=== PATIENT | female | born 1995 | race Caucasian/White ===

== ENCOUNTER 2018-12-17 19:39 | Inpatient (IN) | payer OTHER ==
[2018-12-17] MEDS ORDERED: BUTORPHANOL TARTRATE 1 MG/ML VIAL IVPB ONE (22:25)
[2018-12-17] MEDS ORDERED: PROMETHAZINE HCL 25 MG/1 ML VIAL IVPUSH ONE (22:25)
--- NOTE | 2018-12-17 22:36 | HP ---
Past Medical History - Admission Chief Complaint: IOL for IUGR History of Present Illness: 23yo @ 39.4wks here for IOL for IUGR as per 12/10 sonogram (EFW 5.3lbs). No VB/LOF. Denies ctx. Positive FM PNC @ [address] 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: Alzheimer's, CVA, Dementia, Migraine, Multiple Sclerosis, Peripheral Neuropathy, Parkinson's, Seizure, Syncope, TIA, Vertigo, Other Cardiovascular: No: AFIB, Aneurysm, Aortic Insufficiency, Aortic Stenosis, CAD, CHF, Deep Vein Thrombosis, HTN, Hyperlipdemia, MD, Mitral Insufficiency, Mitral Stenosis, Murmur, Pulmonary Hypertension, Other Gastrointestinal: No: Ascites, Cancer, Constipation, Crohn's Disease, Diverticulitis, Diverticulosis, Esophageal Varices, Gastritis, GERD, GI Bleed, Hemorrhoids, Hiatal Hernia, Inflamatory Bowel Disease, Irritable Bowel Disease, Pancreatitis, Peptic Ulcer Disease, Ulcerative Colitis, Other Hepatobiliary: No: Cirrhosis, Cholelithiasis, Cholecystitis, Choledocholithiasis , Hepatitis A, Hepatitis B, Hepatitis C, Other Renal/: No: Renal Failure, Renal Inusuff, BPH, Cancer, Hematuria, Hemodialysis , Neurogenic Bladder, Renal Calculi, UTI, Other ... Weeks Gestation by Dates: 39.4 ...EDC by Sono: 12/13/18 Heme/Onc: No: Anemia, B12 Deficiency, Bleeding Disorder, Cancer, Current Chemotherapy, Current Radiation Therapy, Hemochromatosis, Hypercoaguable State, Myeloproliferative Synd, Sickle Cell Disease, Sickle Cell Trait, Thrombocytopenia, Other Infectious Disease: No: AIDS, C-Diff, Herpes Zoster, HIV, MRSA, STD's, Tuberculosis, VREF, Other Psych: No: Addictions, Anxiety, Bipolar, Depression, Panic, Psychosis, Schizophrenia, Other Musculoskeletal: No: Bursitis, Chronic low back pain, Hemiparesis, Hemiplegia, Osteoarthritis, Paraplegia, Other - Past Surgical History Past Surgical History: Yes: None Hx Myomectomy: No Hx Transabdominal Cerclage: No - Smoking History Smoking history: Never smoked Have you smoked in the past 12 months: No - Alcohol/Substance Use Hx Alcohol Use: No History of Substance Use: reports: None - Social History Usual Living Arrangement: Yes: With Spouse ADL: Independent History of Recent Travel: No Home Medications - Allergies Allergies/Adverse Reactions: Allergies Allergy/AdvReac Type Severity Reaction Status Date / Time almond Allergy Severe Hives Verified 11/26/18 14:34 Penicillins Allergy Severe Hives Verified 11/26/18 14:34 ampicillin Allergy Verified 11/08/18 11:42 - Home Medications Home Medications: Ambulatory Orders Pnv No.95/Ferrous Fum/Folic AC [ Formula] 1 each PO DAILY 11/26/18 Physical Exam - Maternity Vital Signs: Vital Signs Temperature 98.4 F 12/17/18 22:00 Pulse Rate 78 12/17/18 22:00 Respiratory Rate 20 12/17/18 22:00 Blood Pressure 124/60 12/17/18 22:00 O2 Sat by Pulse Oximetry (%) Constitutional: Yes: Well Nourished, No Distress, Calm Eyes: Yes: WNL, Conjunctiva Clear, EOM Intact HENT: Yes: WNL, Atraumatic, Normocephalic Neck: Yes: WNL, Supple, Trachea Midline Cardiovascular: Yes: WNL, Regular Rate and Rhythm Breast(s): Yes: WNL - Vaginal Exam/OB Vaginal Bleediing: No Speculum Exam: No Dilatation (cm): 2 Effacement (%): 50 Amniotic Membrane Status: Intact Presentation: Vertex/Position Station: -3 Assessment/Plan 23yo @ 39.4wks by sono here for IOL for IUGR on 12/10 sono- recommended by MFM Admit to L&D Cytotec ripening, pitocin/AROM when favorable Stadol/epidural prn Cat 1 tracing Anticipate ABI Church
[2018-12-17] MEDS ORDERED: PROMETHAZINE HCL 25 MG/1 ML VIAL IVPB PRN (22:37)
[2018-12-17] MEDS: ELECTROLYTE-148 SOLN 1,000 ML IV SCH (23:00)
[2018-12-17 23:37] LABS: BASO % 0.2 % (0-2.0); EOS % 0.1 % (0-4.5); HEMATOCRIT 32.7 % (32.4-45.2); HEMOGLOBIN 11.3 GM/dL (10.7-15.3); LYMPH % 13.8 % (8-40); MCH 30.6 pg (25.7-33.7); MCHC 34.7 g/dl (32.0-36.0); MEAN CELL VOLUME 88.3 fl (80-96); MEAN PLT VOLUME 8.8 fl (7.5-11.1); MONO % 3.6 % (3.8-10.2); NEUT % 82.3 % (42.8-82.8); PLATELET COUNT 167 K/MM3 (134-434); RDW 14.5 % (11.6-15.6); WHITE BLOOD COUNT 8.2 K/mm3 (4.0-10.0)
[2018-12-17 23:48] LABS: INR 0.93 (0.83-1.09)
[2018-12-18 00:03] LABS: BLOOD UREA NITROGEN 8.8 mg/dL (7-18); CALCIUM 8.4 mg/dL (8.5-10.1); CREATININE 0.5 mg/dL (0.55-1.3); POTASSIUM 3.5 mmol/L (3.5-5.1)
[2018-12-18] MEDS: MISOPROSTOL 100 MCG TABLET PO SCH ×2 (01:15→05:15)
[2018-12-18 02:10] VITALS: BMI 24.1
[2018-12-18] MEDS: ELECTROLYTE-148 SOLN 1,000 ML IV SCH ×2 (06:00→10:30)
--- NOTE | 2018-12-18 06:13 | PN ---
Progress Note, Labor Vaginal Exam #1 Labor Exam Date: 12/18/18 Labor Exam Time: 06:12 Heart Rate (range): Cat I Dilatation: 4 Effacement (%): 70 Amniotic Membrane Status: Intact Presentation: Vertex/Position Station: -2 Remarks: Pt comfortable s/p cytotec #2 at 5:15AM Continue current management, consider pitocin/AROM at next check Anticipate ABI Church MD
[2018-12-18] MEDS ORDERED: FENTANYL/BUPIVACAINE/NS/PF - PCEA - 50 ML DISP.SYRIN EP ONE (09:27)
[2018-12-18] MEDS ORDERED: NALOXONE HCL 0.4 MG/ML VIAL IVPUSH PRN (09:43)
[2018-12-18] MEDS ORDERED: LIDO 2%/EPI 1:200000 PRESRVFRE (20 ML SDVIAL) ONE (09:44)
[2018-12-18] MEDS ORDERED: BUPIVACAINE HCL/PF 0.25% (2.5MG/ML) 10 ML VIAL ONE (09:44)
[2018-12-18] MEDS ORDERED: FENTANYL/BUPIVACAINE/NS/PF - PCEA - 50 ML DISP.SYRIN EP SCH (09:45)
[2018-12-18] MEDS ORDERED: OXYTOCIN 20 UNITS in 0.9% NS 20 UNIT/1,000 ML INFUS.BAG IV ONE ×2 (12:18→16:56)
[2018-12-18] MEDS ORDERED: OXYTOCIN 30 UNITS in 0.9% NS 30 UNIT/500 ML INFUS.BAG IVPB ONE (13:12)
[2018-12-18] MEDS ORDERED: BENZOCAINE 20% 57 GM BOTTLE TP PRN (14:00)
[2018-12-18] MEDS ORDERED: BENZOCAINE 28 GM HEMORRHOIDAL OINTMENT TP PRN (14:00)
[2018-12-18] MEDS ORDERED: METHYLERGONOVINE MALEATE 0.2 MG/1 ML AMP IM PRN (14:00)
[2018-12-18] MEDS ORDERED: WITCH HAZEL 50% (TUCKS) 40 PAD/JAR PAD TP PRN (14:00)
[2018-12-18] MEDS ORDERED: OXYTOCIN 20 UNITS in 0.9% NS 20 UNIT/1,000 ML INFUS.BAG IV SCH (14:00)
[2018-12-18] MEDS ORDERED: BISACODYL 10 MG SUPP.RECT RC PRN (14:00)
--- NOTE | 2018-12-18 14:06 | PN ---
Delivery - Delivery Vaginal Delivery: Spontaneous Type of Anesthesia: Epidural Episiotomy/Laceration: 2nd degree EBL (cc): 400 Delivery, Single - [place] Feeding Plan Initial Plan: Elected not to breastfeed exclusively throughout hospitalization Remarks - Remarks Remarks: Normal spontaneous vaginal delivery of a live infant ( SGA ), over second degree laceration. Nose / Oropharynx suctioned @ perineum. Cord clamped and cut. Baby handed to Insurance Manager Placenta expelled spontaneously intact. Laceration repaired with 2.0 Chromic. Mother in stable condition.
[2018-12-18 14:59] LABS: VENOUS PC02 45.9 mmHg (41-51)
[2018-12-18 15:02] LABS: VENOUS PH 7.28 (7.31-7.41)
[2018-12-18] MEDS: ACETAMINOPHEN 325 MG TABLET (FP) PO PRN (21:20)
[2018-12-18] MEDS: FERROUS SO4 325 MG TABLET (FP) PO SCH (21:20)
[2018-12-18] MEDS: IBUPROFEN 600 MG TABLET (FP) PO PRN (21:21)
--- NOTE | 2018-12-19 07:46 | PN ---
Post Progress Note - Subjective Subjective: Patient is doing well, ambulating, tolerating PO, lochia decreased, passing flatus, breast feeding, does not desire circumcision Post Day: 1 Type of Delivery: Vital Signs: Vital Signs Temperature 98.6 F 12/19/18 06:00 Pulse Rate 59 L 12/19/18 06:00 Respiratory Rate 18 12/18/18 22:23 Blood Pressure 101/56 L 12/19/18 06:00 O2 Sat by Pulse Oximetry (%) 100 12/18/18 14:45 Breast Exam: Yes: Other (deferred) Uterus: Yes: Fundus Firm Abdomen/GI: Yes: Abdomen soft Lochia, amount: Moderate Extremities: Yes: Calves non-tender Activity: Ambulating - Labs Labs: CBC WBC 8.2 K/mm3 (4.0-10.0) 12/17/18 23:00 RBC 3.70 M/mm3 (3.60-5.2) 12/17/18 23:00 Hgb 11.3 GM/dL (10.7-15.3) 12/17/18 23:00 Hct 32.7 % (32.4-45.2) 12/17/18 23:00 MCV 88.3 fl (80-96) 12/17/18 23:00 MCH 30.6 pg (25.7-33.7) 12/17/18 23:00 MCHC 34.7 g/dl (32.0-36.0) 12/17/18 23:00 RDW 14.5 % (11.6-15.6) 12/17/18 23:00 Plt Count 167 K/MM3 (134-434) 12/17/18 23:00 MPV 8.8 fl (7.5-11.1) 12/17/18 23:00 Absolute Neuts (auto) 6.8 K/mm3 (1.5-8.0) 12/17/18 23:00 Neutrophils % 82.3 % (42.8-82.8) 12/17/18 23:00 Lymphocytes % 13.8 % (8-40) D 12/17/18 23:00 Monocytes % 3.6 % (3.8-10.2) L 12/17/18 23:00 Eosinophils % 0.1 % (0-4.5) 12/17/18 23:00 Basophils % 0.2 % (0-2.0) 12/17/18 23:00 Nucleated RBC % 0 % (0-0) 12/17/18 23:00 Assessment/Plan PPD # 1 in stable condition, with mother -continue PP care -Anticipate D/C home tomorrow
[2018-12-19 07:52] LABS: BASO % 0.4 % (0-2.0); EOS % 0.5 % (0-4.5); HEMATOCRIT 24.9 % (32.4-45.2); HEMOGLOBIN 8.5 GM/dL (10.7-15.3); LYMPH % 18.8 % (8-40); MCH 30.5 pg (25.7-33.7); MCHC 34.4 g/dl (32.0-36.0); MEAN CELL VOLUME 88.6 fl (80-96); MEAN PLT VOLUME 9.5 fl (7.5-11.1); MONO % 4.6 % (3.8-10.2); NEUT % 75.7 % (42.8-82.8); RBC 2.81 M/mm3 (3.60-5.2); RDW 14.6 % (11.6-15.6)
[2018-12-19 08:34] LABS: PLATELET COUNT 159 K/MM3 (134-434)
[2018-12-19] MEDS: FERROUS SO4 325 MG TABLET (FP) PO SCH ×2 (10:34→22:08)
[2018-12-19] MEDS: PRENATAL VITAMINS W/ FOLIC ACID TABLET (FP) PO SCH (10:34)
[2018-12-19] MEDS ORDERED: SENNOSIDES/DOCUSATE COMBO (SENNA PLUS) TABLET (UD) PO PRN (22:00)
[2018-12-19] MEDS: IBUPROFEN 600 MG TABLET (FP) PO PRN (22:08)
[2018-12-19] MEDS: ACETAMINOPHEN 325 MG TABLET (FP) PO PRN (22:08)
--- NOTE | 2018-12-20 05:06 | DS ---
Physical Examination Vital Signs: Vital Signs Temperature 98.9 F 12/19/18 22:08 Pulse Rate 77 12/19/18 22:08 Respiratory Rate 18 12/19/18 22:08 Blood Pressure 121/67 12/19/18 22:08 O2 Sat by Pulse Oximetry (%) 100 12/19/18 21:00 Constitutional: Yes: Well Nourished, No Distress, Calm Eyes: Yes: WNL, Conjunctiva Clear, EOM Intact HENT: Yes: WNL, Atraumatic, Normocephalic Neck: Yes: WNL, Supple, Trachea Midline Cardiovascular: Yes: WNL, Regular Rate and Rhythm Respiratory: Yes: WNL, Regular, CTA Bilaterally Gastrointestinal: Yes: WNL, Normal Bowel Sounds Musculoskeletal: Yes: WNL Extremities: Yes: WNL Edema: No Integumentary: Yes: WNL Neurological: Yes: WNL, Alert, Oriented ...Motor Strength: WNL Psychiatric: Yes: WNL Labs: CBC, BMP 12/19/18 05:28 12/17/18 23:00 Discharge Summary Reason For Visit: INDUCTION FOR LABOR Current Active Problems IUGR (intrauterine growth restriction) (Acute) Procedures: Principal: Hospital Course: Patient presented for IOL for IUGR She had an uncomplicated She met all milestones She was discharged home on PPD#2 M. MD Ranjit - Instructions Diet, Activity, Other Instructions: Follow up in 4-6 weeks Referrals: Keena Church MD [Staff Physician] - Disposition: HOME - Home Medications Comprehensive Discharge Medication List: Ambulatory Orders Ibuprofen 600 mg PO Q6H PRN #30 tablet 12/19/18
[2018-12-20 06:06] VITALS: TEMP 98.4
[2018-12-20] MEDS: FERROUS SO4 325 MG TABLET (FP) PO SCH (10:00)
[2018-12-20] MEDS: PRENATAL VITAMINS W/ FOLIC ACID TABLET (FP) PO SCH (10:00)
[2018-12-20] MEDS: ACETAMINOPHEN 325 MG TABLET (FP) PO PRN (10:00)
[2018-12-20] MEDS: IBUPROFEN 600 MG TABLET (FP) PO PRN (10:01)
[2018-12-20 12:36] VITALS: BP 114/60; PULSE 90
== END 2018-12-20 13:35 | disposition home or self-care (01) | DRG 560 ==
LOC: JDEL 19:39 → JLDR 21:00 → J3W 12-18 15:10
PROVIDERS: ADMIT Obstetrics & Gynecology; ATTEND Obstetrics & Gynecology
PROC: 3E0P7VZ Introduction of Hormone into Female Reproductive, Via Natural or Artificial Opening (ICD-10-PCS; 2018-12-17)
PROC: 3E033VJ Introduction of Other Hormone into Peripheral Vein, Percutaneous Approach (ICD-10-PCS; 2018-12-17)
PROC: 10E0XZZ Delivery of Products of Conception, External Approach (ICD-10-PCS; principal; 2018-12-18)
PROC: 0KQM0ZZ Repair Perineum Muscle, Open Approach (ICD-10-PCS; 2018-12-18)
PROC: 3E0R3BZ Introduction of Anesthetic Agent into Spinal Canal, Percutaneous Approach (ICD-10-PCS; 2018-12-18)
DX: O36.5930 Maternal care for other known or suspected poor fetal growth, third trimester, not applicable or unspecified (principal); O70.1 Second degree perineal laceration during delivery; Z3A.39 39 weeks gestation of pregnancy; Z37.0 Single live birth
CPT/HCPCS: 36415; 59409; 71046-TC-FY; 80048; 82803; 85025; 85610; 85730; 86593; 86850; 86900; 86901

== ENCOUNTER 2021-05-30 14:15 | Inpatient (IN) | payer OTHER ==
[2021-05-30] MEDS ORDERED: ELECTROLYTE-148 SOLN 1,000 ML IV SCH (15:15)
[2021-05-30] MEDS ORDERED: OXYTOCIN 30 UNITS in 0.9% NS 30 UNIT/500 ML INFUS.BAG IVPB SCH (15:45)
[2021-05-30] MEDS ORDERED: OXYTOCIN 30 UNITS in 0.9% NS 30 UNIT/500 ML INFUS.BAG IVPB ONE (16:14)
[2021-05-30 16:31] LABS: BASO % 0.2 % (0-2.0); EOS % 0.5 % (0-4.5); HEMATOCRIT 31.8 % (32.4-45.2); HEMOGLOBIN 10.7 GM/dL (10.7-15.3); LYMPH % 18.6 % (8-40); MCHC 33.7 g/dl (32.0-36.0); MONO % 3.6 % (3.8-10.2); NEUT % 77.1 % (42.8-82.8); PLATELET COUNT 232 10^3/uL (134-434); RBC 3.83 M/mm3 (3.60-5.2); RDW 15.9 % (11.6-15.6); WHITE BLOOD COUNT 6.5 K/mm3 (4.0-10.0)
[2021-05-30 16:34] LABS: INR 1.02 (0.83-1.09); PROTHROMBIN TIME (PATIENT) 11.4 SEC (9.7-13.0)
[2021-05-30 16:37] LABS: ACTIVATED PTT 27.2 SECONDS (25.2-36.5)
[2021-05-30 16:52] LABS: CALCIUM 8.2 mg/dL (8.5-10.1)
[2021-05-30 16:53] LABS: BLOOD UREA NITROGEN 8.9 mg/dL (7-18)
[2021-05-30 16:56] LABS: CREATININE 0.4 mg/dL (0.55-1.3)
[2021-05-30 18:49] VITALS: BMI 24.5
[2021-05-30] MEDS ORDERED: FENTANYL/BUPIVACAINE/NS/PF - PCEA - 50 ML DISP.SYRIN EP ONE (19:23)
[2021-05-30] MEDS ORDERED: PCA PUMP NR ONE (19:23)
[2021-05-30] MEDS ORDERED: BUPIVACAINE HCL/PF 0.25% (2.5MG/ML) 10 ML VIAL ONE (22:34)
[2021-05-30] MEDS ORDERED: NALOXONE HCL 0.4 MG/ML VIAL IVPUSH PRN (22:58)
[2021-05-30] MEDS ORDERED: FENTANYL/BUPIVACAINE/NS/PF - PCEA - 50 ML DISP.SYRIN EP SCH (23:00)
[2021-05-31] MEDS ORDERED: BENZOCAINE 28 GM HEMORRHOIDAL OINTMENT TP PRN (00:37)
[2021-05-31] MEDS ORDERED: ACETAMINOPHEN 325 MG TABLET (FP) PO PRN (00:37)
[2021-05-31] MEDS ORDERED: BISACODYL 10 MG SUPP.RECT RC PRN (00:37)
[2021-05-31] MEDS ORDERED: BENZOCAINE 20% 57 GM BOTTLE TP PRN (00:37)
[2021-05-31] MEDS ORDERED: WITCH HAZEL 50% (TUCKS) 40 PAD/JAR PAD TP PRN (00:37)
[2021-05-31] MEDS ORDERED: OXYTOCIN 20 UNITS in 0.9% NS 20 UNIT/1,000 ML INFUS.BAG IV SCH (00:45)
[2021-05-31] MEDS: IBUPROFEN 600 MG TABLET (FP) PO PRN ×2 (17:00→23:59)
[2021-06-01 08:49] LABS: BASO % 0.2 % (0-2.0); EOS % 1.9 % (0-4.5); HEMATOCRIT 24.9 % (32.4-45.2); HEMOGLOBIN 8.5 GM/dL (10.7-15.3); LYMPH % 25.3 % (8-40); MCH 28.4 pg (25.7-33.7); MCHC 34.1 g/dl (32.0-36.0); MEAN CELL VOLUME 83.4 fl (80-96); MEAN PLT VOLUME 8.1 fl (7.5-11.1); MONO % 5.7 % (3.8-10.2); NEUT % 66.9 % (42.8-82.8); PLATELET COUNT 188 10^3/uL (134-434); RBC 2.98 M/mm3 (3.60-5.2); RDW 15.9 % (11.6-15.6); WHITE BLOOD COUNT 6.5 K/mm3 (4.0-10.0)
[2021-06-01] MEDS ORDERED: SENNOSIDES/DOCUSATE COMBO (SENNA PLUS) TABLET (UD) PO PRN (22:00)
[2021-06-02 11:39] VITALS: BP 104/71; PULSE 86; TEMP 98.7
== END 2021-06-02 13:46 | disposition home or self-care (01) | DRG 560 ==
LOC: JLDR 14:15 → J3W 05-31 03:03
PROVIDERS: ADMIT Student in an Organized Health Care Education/Training Program; ATTEND Student in an Organized Health Care Education/Training Program
PROC: 10E0XZZ Delivery of Products of Conception, External Approach (ICD-10-PCS; principal; 2021-05-31)
DX: O80 Encounter for full-term uncomplicated delivery (principal); Z3A.39 39 weeks gestation of pregnancy; Z37.0 Single live birth
CPT/HCPCS: 36415; 59409; 80048; 85025; 85610; 85730; 86780; 86850; 86900; 86901; C9803; U0003; U0005